=== PATIENT | male | born 1995 | race Caucasian/White ===

== ENCOUNTER → 2023-02-10 | Outpatient (REF) ==
[~2023-02-10] MED LIST: 8 HO650T2 PO; ASPI-255 PO; VICO5TAB17 PO
== END ==
LOC: M PLAIMG 12:41
PROVIDERS: ATTEND Internal Medicine
DX: R52 Pain, unspecified (principal)

== ENCOUNTER 2025-02-20 07:17 | Emergency (ER) | payer OTHER ==
[~2025-02-20] VITALS: Ht 160 cm; Wt 65.7 kg
[2025-02-20 07:27] VITALS: BP 124/75; TEMP 97.8; O2SAT 98
== END 2025-02-20 08:35 | disposition left against medical advice (07) ==
LOC: M ED 07:17
DX: Z53.21 Procedure and treatment not carried out due to patient leaving prior to being seen by health care provider (principal)